=== PATIENT | female | born 1965 ===

== ENCOUNTER → 2020-07-20 12:39 | Outpatient (CLI) | payer BC, SELFPAY ==
--- NOTE | ~2020-07-20 | MR_ITS ---
EXAMINATION: MR lumbar spine wo con DATE: 07/20/2020 14:18 INDICATION: Low back pain. TECHNIQUE: Magnetic resonance imaging (MRI) of the lumbar spine was performed without intravenous con trast. Sequences included sagittal T2-weighted FSE, sagittal T2-weighted FS FSE, sagittal T1-weighted FSE, and axial T2-weighted FSE. COMPARISON: Lumbar spine radiographs 07/01/2020 FINDINGS: There is 8 degrees levocurvature of thoracolumbar spine. Vertebral body heights are normal. There is severely decreased disc height at L4-L5 with endplate remodeling. The distal spinal cord si gnal intensity is normal. The conus medullaris is at L1. The following disc levels are specifically d iscussed: L1-L2 through L3-L4: The disc does not extend beyond the endplate margin. There is no facet joint ost eoarthritis. There is no neural foraminal stenosis. There is no central canal stenosis. L4-L5: The disc is bulging and has an annular fissure. There is no facet joint osteoarthritis. There is mild bilateral neural foraminal stenosis. There is mild central canal stenosis. L5-S1: The disc is bulging and has an annular fissure. There is no facet joint osteoarthritis. There is mild bilateral neural foraminal stenosis. There is mild central canal stenosis. IMPRESSION: 1. Severe degenerative disc disease at L4-L5. Reviewed, dictated and finalized at location B. [employer]
--- NOTE | ~2020-07-20 | MR_ITS ---
EXAMINATION: MR hip LT wo con DATE: 07/20/2020 14:09 INDICATION: Left hip pain TECHNIQUE: Magnetic resonance imaging (MRI) of the left hip was performed without intravenous contra st. Sequences included full-field axial PD-weighted FS FSE and T1-weighted FSE, coronal of the pelvis with PD-weighted FS FSE, small field of view of the left hip with axial PD-weighted FS FSE, sagitta l PD-weighted FS FSE and coronal PD weighted FS FSE. Additional radial T1-weighted FGR oriented ortho gonal to the acetabular rim were obtained for evaluation of the labrum. COMPARISON: Radiographs dated 07/01/2020 FINDINGS: Bones/labrum/cartilage: Alignment is normal. No fracture, avascular necrosis or pathologic marrow replacing process. Mild le ft hip osteoarthritis with mild nonuniform joint space narrowing with mild anterior predominant parti al-thickness cartilage loss with smooth chondral surface and without degenerative subchondral changes . There is a tear of the superolateral to posterior superior left acetabular labrum which is been par tially replaced by a prominent marginal osteophyte. There is a region of high-grade chondromalacia at the anterosuperior right acetabulum with underlying mild subarticular cystic change. The right hip j oint space appears relatively preserved however direct assessment of the cartilage is limited on the larger field of view images. On the radiographs similar marginal osteophytes are seen at the superola teral right acetabulum. Severe degenerative disc disease with degenerative endplate remodeling at L4- L5. Fluid: Symmetric physiologic amount of fluid within both hip joints. No bursitis or other abnormal fluid col lections. Soft tissues: Normal and symmetric muscle bulk and signal in the pelvis and visualized proximal thighs. The iliopso as, gluteal and proximal hamstring tendons are normal. Limited evaluation of visceral organs of the p po is unremarkable. No pathologically enlarged pelvic/inguinal lymphadenopathy. IMPRESSION: 1. Mild left hip osteoarthritis with likely chronic labral degeneration partially replaced by margina l osteophytes along the posterior superior left acetabulum. 2. 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 Reviewed, dictated and finalized at location A. [employer] IMPRESSION: 1. Mild left hip osteoarthritis with likely chronic labral degeneration partial ly replaced by marginal osteophytes along the posterior superior left acetabulu m. 2. 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
== END ==
PROVIDERS: Visit Provider Orthopaedic Surgery
DX: M16.12 Unilateral primary osteoarthritis, left hip (principal); S83.422A Sprain of lateral collateral ligament of left knee, initial encounter; M94.262 Chondromalacia, left knee; M47.816 Spondylosis without myelopathy or radiculopathy, lumbar region
CPT/HCPCS: 72148; 73721

== ENCOUNTER → 2020-08-03 12:38 | Outpatient (CLI) | payer BC, SELFPAY ==
--- NOTE | ~2020-08-03 | MM_ITS ---
EXAMINATION: MM screening radha BI w odilia HISTORY: Screening mammogram TECHNIQUE: Craniocaudal and mediolateral oblique 3-D tomosynthesis images were obtained and synthetic 2-D images were generated. CAD analysis was submitted and interpreted. COMPARISON: No prior mammogram is available for comparison at this institution. BREAST PARENCHYMAL COMPOSITION: There are scattered areas of fibroglandular density. FINDINGS: Mild fibroglandular asymmetry. Minimal benign breast calcification. There is no evidence of suspicious mass, calcification, or architectural distortion to suggest malignancy in either breast. There has been no suspicious interval change. IMPRESSION: 1. No mammographic evidence of malignancy. 2. Recommend routine screening mammography in one year. BI-RADS Category 2: Benign finding(s). Reviewed, dictated and finalized at location A. [facility]
== END ==
DX: Z12.31 Encounter for screening mammogram for malignant neoplasm of breast (principal)
CPT/HCPCS: 77063; 77067